=== PATIENT | male | born 1970 | race Caucasian/White ===

== ENCOUNTER 2017-04-17 14:42 | Emergency (ER) | payer OTHER ==
[2017-04-17 15:19] VITALS: BP 125/69
[2017-04-17] MEDS ORDERED: Ondansetron ODT TAB* 4 MG PO ONE (15:20)
[2017-04-17] MEDS ORDERED: Ibuprofen TAB* 600 MG PO ONE (16:00)
--- NOTE | 2017-04-17 16:24 | UC ---
Abdominal Pain Male HPI - HPI Summary HPI Summary: 46 y/o male presents ot the urgent care c/o diarrhea with abdominal cramping pain for the past 5 days. Pt reports he was in business trip in [facility] this past Tuesday. After he ate a hamburger, he had abdominal cramping pain all night and the Tue and he had multiple episodes of watery diarrhea. His appetite has decrease to the point he has not eaten anything for the past 2 days, only drinking Gatorade. When he returned on from his trip he had a fever of 100.5 which he took tylenol and it resolved. Since yesterday his bowel movements are soft. Today he has nausea, ROGERS and no appetite. Denies traveling outside the country, SOB, chest pain, vomiting, - History of Current Complaint Chief Complaint: UCRespiratory Stated Complaint: FLU LIKE SYMPTOMS,FEVER,DIARRHEA Time Seen by Provider: 04/17/17 15:33 Hx Obtained From: Patient Onset/Duration: Sudden Onset, Lasting Days, Still Present Severity Initially: Moderate Severity Currently: Mild Pain Intensity: 5 - headache Pain Scale Used: 0-10 Numeric Location: Epigastric - mild Radiates: No Character: Unable to describe Aggravating Factor(s):: Food Alleviating Factor(s): Rest Associated Signs And Symptoms: Positive: Fever, Nausea, Diarrhea. Negative: Back Pain, Blood in Stool, Urinary Symptoms, Decreased Appetite - Risk Factors Testicular Torsion: Negative Cardiac Risk Factors: Negative - Allergies/Home Medications Allergies/Adverse Reactions: Allergies Allergy/AdvReac Type Severity Reaction Status Date / Time No Known Allergies Allergy Verified 03/11/14 08:43 Home Medications: Home Medications Atorvastatin* [Lipitor*] 20 mg PO 1700 04/17/17 [History Confirmed 04/17/17] PMH/Surg Hx/FS Hx/Imm Hx Previously Healthy: Yes - Surgical History Surgical History: Yes Surgery Procedure, Year, and Place: Fracture repair on right leg and left arm - Family History Family History: Colon Cancer - Social History Alcohol Use: None Substance Use Type: None Smoking Status (MU): Never Smoked Tobacco - Immunization History Most Recent Influenza Vaccination: Review of Systems Constitutional: Fever Skin: Negative Eyes: Negative ENT: Negative Respiratory: Negative Cardiovascular: Negative Gastrointestinal: Abdominal Pain - mild epigastric pain, Diarrhea, Nausea Genitourinary: Negative Motor: Negative Neurovascular: Negative Musculoskeletal: Negative Neurological: Negative Psychological: Negative All Other Systems Reviewed And Are Negative: Yes Physical Exam Triage Information Reviewed: Yes Appearance: Well-Appearing, No Pain Distress, Well-Nourished, Thin Vital Signs: Initial Vital Signs Temp 99.2 F 04/17/17 15:16 Pulse 74 04/17/17 15:16 Resp 18 04/17/17 15:16 BP 125/69 04/17/17 15:16 Pulse Ox 99 04/17/17 15:16 Vital Signs Reviewed: Yes Eye Exam: Normal Eyes: Positive: Conjunctiva Clear - PERRLA, EOMI, Fundi grossly normal ENT Exam: Normal ENT: Positive: Normal ENT inspection, Hearing grossly normal, Pharynx normal, Pharyngeal erythema, TMs normal. Negative: Nasal congestion, Nasal drainage Dental Exam: Normal Neck exam: Normal Neck: Positive: Supple, Nontender, No Lymphadenopathy Respiratory Exam: Normal Respiratory: Positive: Chest non-tender, Lungs clear, Normal breath sounds Cardiovascular Exam: Normal Cardiovascular: Positive: RRR, No Murmur, Pulses Normal Abdominal Exam: Normal Abdomen Description: Positive: No Organomegaly - Mild epigastric tenderness on deep palpation., Soft. Negative: CVA Tenderness (R), CVA Tenderness (L), Splenomegaly Bowel Sounds: Positive: Present Musculoskeletal Exam: Normal Musculoskeletal: Positive: Strength Intact, ROM Intact, No Edema Neurological Exam: Normal Psychological Exam: Normal Skin Exam: Normal Abd Pain Male Course/Dx - Course Course Of Treatment: 46 y/o male presents ot the urgent care c/o diarrhea with abdominal cramping pain for the past 5 days. Diarrhea resolved yesterday. Today PT with nausea, ROGERS and decrease appetite. Hx obtained. PE abnormal findings: Mild epigastric tenderness on deep palpation. Pt given Zofran 4mg PO to alleviate symptoms of Nausea. Ibuprofen 600mg PO to alleviate ROGERS. Pt tpolerated well medications and fetl better. UA ordered, Result: negative. No signs of dehydration. Stool kit given to pt and advised to bring it back to sent to lab for culture and O&P. Pt advised if anything returns abnormal from lab he will get a call from us fot further treatment. Zofran Tabs and Omeprazole Rx to alleviate symptoms. Advised to continue with fluid intake and start soft meals. Pt understood and agreed. Left clinic ambulating. - Differential Dx/Clinical Impression Differential Diagnosis/HQI/PQRI: Appendicitis, Renal Colic, Urinary Tract Infection, Other - Gastroenteritis, travellers diarrhea. Provider Diagnoses: Diarrhea, Nausea, Headache. - Physician Notification/Consults Discussed Patient Care With: Concepcion Lomax - DR Lomax agreed with plan of care. Discharge - Discharge Plan Condition: Stable Disposition: HOME Prescriptions: Omeprazole CAP* [Prilosec CAP* 20 MG] 20 mg PO DAILY #15 cap. Ondansetron TAB* [Zofran 4 MG Tab*] 4 mg PO Q6H PRN #12 tab PRN Reason: Nausea Patient Education Materials: Acute Diarrhea (ED) Referrals: [facility] [Outside] - If Needed Additional Instructions: Please take medications as instructed to alleviate symptoms. Continue increasing fluid intake, start eating soft meals, take tylenol or Ibuprofen OTC to alleviate symptoms of headache. Stool will be set to lab, if any abnormal results, you will receive a call from us for further treatment. If you do not improve or if symptoms worsen after the course of antibiotics, you should either follow up with your PCP or return to the urgent care for further evaluation and treatment.
== END 2017-04-17 17:00 | disposition home or self-care (01) ==
LOC: UCEAST 14:42
DX: R19.7 Diarrhea, unspecified (principal); R11.0 Nausea; R51 Headache
CPT/HCPCS: 81003; 99212; A9270-GY; G0463

== ENCOUNTER 2017-10-07 18:02 | Observation (INO) | payer OTHER ==
--- NOTE | 2017-10-07 21:24 | RAD ---
Indication: Right leg pain. Duplex Doppler sonography of the deep venous system of the right lower extremity was performed. Bilaterally the common femoral veins appear patent and compressible. The right proximal femoral vein, proximal deep femoral vein and mid femoral vein are patent and compressible. The distal femoral vein, popliteal vein demonstrates echogenic material which is noncompressible. Posterior tibial veins and peroneal veins are also thrombosed. IMPRESSION: Deep venous thrombosis of the right distal femoral vein through the right calf veins.
[2017-10-07 21:36] LABS: Hematocrit 43 % (42-52); Hemoglobin 14.7 g/dl (14.0-18.0); Mean Corpuscular HGB Conc 34 g/dl (31-36); Mean Corpuscular Hemoglobin 30 pg (27-31); Mean Corpuscular Volume 89 fL (80-94); Mean Platelet Volume 8 um3 (7.4-10.4); Red Blood Count 4.86 10^6/ul (4.0-5.4); Red Cell Distribution Width 13 % (10.5-15); White Blood Count 7.3 10^3/ul (3.5-10.8)
[2017-10-07 21:50] LABS: Albumin 4.1 g/dL (3.2-5.2); BUN/Creatinine Ratio 14.9 (8-20); Calcium 9.5 mg/dL (8.6-10.3); EGFR African American 88.2 (>60); EGFR Non-African American 68.6 (>60); Potassium 4.1 mmol/L (3.5-5.0); Total Bilirubin 0.4 mg/dL (0.2-1.0); Total Protein 7.1 g/dL (6.4-8.9)
[2017-10-07] MEDS ORDERED: Enoxaparin(*) 100 MG/ML SYR SUBCUT ONE (21:51)
--- NOTE | 2017-10-07 22:05 | RAD ---
Indication: Dyspnea. 2 views of the chest including dual energy PA views demonstrate no mediastinal shift. Heart is of normal size and configuration. Lung baca and straight no pleural fluid, pneumonia or pneumothorax. IMPRESSION: No active cardiopulmonary disease is noted.
[2017-10-07] MEDS ORDERED: Iohexol 350* (CONTRAST) 500 ML MDV IV ONE (22:23)
[2017-10-07] MEDS ORDERED: Acetaminophen TAB* 325 MG PO PRN (23:38)
[2017-10-07] MEDS ORDERED: Ondansetron INJ* 2 MG/ML VIAL IV PRN (23:38)
[2017-10-07] MEDS ORDERED: oxyCODONE TAB* 5 MG TAB PO PRN (23:38)
[2017-10-07] MEDS ORDERED: traMADol TAB* 50 MG PO PRN (23:38)
[2017-10-07] MEDS ORDERED: CMCS: Melatonin (NF) 3 MG TAB PO PRN (23:38)
[2017-10-07] MEDS ORDERED: NS 0.9% 1000 ML* 1,000 ML IV SCH (23:45)
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
[2017-10-08] MEDS ORDERED: Omeprazole CAP* 20 MG PO SCH (06:00)
--- NOTE | 2017-10-08 08:14 | RAD ---
INDICATION: Swollen RIGHT lower leg with concern for DVT. Post fracture repair RIGHT leg and LEFT arm. Dyspnea. Assess for DVT. COMPARISON: October 07, 2017 chest radiograph. TECHNIQUE: Multidetector CT images were obtained from the lung apices to the upper abdomen with 78 mL Omnipaque 350 IV contrast. Pulmonary angiogram protocol. Multiplanar reformation including with maximum intensity projection. REPORT: Minimal dependent subsegmental atelectasis. Negative for pleural effusion or pneumothorax. Negative for thoracic lymphadenopathy. Upper normal heart size. Negative for pericardial effusion. Normal diameter thoracic aorta. Moderately severe burden of acute pulmonary emboli seen as proximal as the distal RIGHT main pulmonary artery and involving bilateral segmental and subsegmental pulmonary arteries. Images through the upper abdomen are unremarkable for a nonobstructing 0.8 cm stone at the upper pole of the LEFT kidney. Negative for fracture or suspicious osseous lesions. IMPRESSION: Moderately severe burden of acute pulmonary emboli seen as proximal as the distal RIGHT main pulmonary artery and involving bilateral segmental and subsegmental pulmonary arteries. Preliminary report provided at 2318 hours by [facility].
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
[2017-10-08] MEDS ORDERED: Rivaroxaban TAB(*) 15 MG PO ONE (15:02)
[2017-10-08 15:29] VITALS: BP 131/78
--- NOTE | 2017-10-09 02:16 | DS ---
CC: Dr. Rodriguez * DISCHARGE SUMMARY: DATE OF ADMISSION: 10/07/17 DATE OF DISCHARGE: 10/08/17 PRIMARY CARE PROVIDER: Dr. Rodriguez. PRINCIPAL DIAGNOSES: 1. Right lower extremity DVT. 2. [id number] pulmonary embolism involving both lungs. SECONDARY DIAGNOSES: 1. Gastroesophageal reflux disease. 2. Hyperlipidemia. DISCHARGE MEDICATIONS: 1. Lipitor 20 mg p.o. daily. 2. Zofran 4 mg p.o. q.6 hours p.r.n. nausea. 3. Prilosec 20 mg p.o. daily. 4. Xarelto 15 mg p.o. twice daily x21 days, then 20 mg p.o. daily. HOSPITAL COURSE: Mr. Villasenor is a 46-year-old male, who has a history of hyperlipidemia and GERD, who presents to the emergency room with complaints of right lower extremity swelling. The patient noted that his right lower extremity began to swell for approximately a week. The patient had pain in his lower extremities starting beginning of this week. He ultimately presented to the emergency room for evaluation as his prompted him to as she previously had a DVT and felt that this was potentially what was going on. The patient had no complaints of chest pain. The patient underwent venous Doppler in the emergency room, which revealed a deep venous thrombosis of the right distal femoral vein through the right calf veins. The patient was given Lovenox in the emergency room. The patient was admitted to the telemetry floor. He did undergo CTA of the chest, which revealed a moderately severe burden of acute pulmonary emboli seen as proximal as the distal right main pulmonary artery and involving bilateral segmental and subsegmental pulmonary arteries. The patient was monitored on telemetry overnight. No significant telemetry issues arose. He has remained hemodynamically stable with blood pressures in the 110s to 130s range. There was one blood pressure listed as 96/58; however, I suspect this is not accurate. The patient's heart rate has been stable in the 60s and 70s. The patient denies any chest pain. He denies any shortness of breath. He has no pain on deep inspiration. At this point, I have recommended that the patient get a transthoracic echocardiogram to evaluate for right heart strain; however, as it is not going to foreign exchange services manager moving forward, the decision was made to discharge the patient home to follow up with his primary care provider and have the echocardiogram performed as an outpatient. After discussion on anticoagulation options including Coumadin, Xarelto and Eliquis, the patient has opted for Xarelto. He was started on this on the day of discharge. The patient understands that he is to take 15 mg of Xarelto twice daily for 21 days followed by 20 mg daily ongoing. The patient did have a hypercoagulable workup sent in the emergency room. This was done as the patient reported a history of DVT/PE in both his mother and his sister. The patient has been instructed to return to the emergency room if he begins coughing up any blood, having a sudden onset of chest pain, shortness of breath , syncope or any other concerning symptoms. FOLLOWUP CONCERNS: The patient is being discharged home today 10/08/17. ACTIVITY LEVEL: As tolerated. DIET: Regular. CONDITION ON DISCHARGE: Stable. TIME SPENT: Thirty-five minutes was spent discharging this patient. [id number]/CPS #: [id number] MTDD
[2017-10-10 12:10] LABS: Free Protein S Antigen 124 % (65 - 160)
[2017-10-10 13:40] LABS: Protein C Activity 120 % (70 - 150)
[2017-10-10 16:35] LABS: Phospholipid Ab IgG < 9.4 GPL; Phospholipid Ab IgM, S 21.6 MPL
== END 2017-10-08 16:00 | disposition home or self-care (01) ==
LOC: ED 18:02 → MEDTELE 23:35
PROVIDERS: ADMIT Hospitalist; ATTEND Hospitalist
DX: I26.99 Other pulmonary embolism without acute cor pulmonale (principal); I82.411 Acute embolism and thrombosis of right femoral vein; K21.9 Gastro-esophageal reflux disease without esophagitis; E78.5 Hyperlipidemia, unspecified; Z79.899 Other long term (current) drug therapy; R06.02 Shortness of breath
CPT/HCPCS: 36415; 71020; 71275; 80053; 81240; 81241; 81291; 85025; 85302; 85303; 85306; 85307; 85379; 85598; 86147; 93005; 96360; 96361; 96372; 99284; G0378; J1650; Q9967

== ENCOUNTER 2017-10-09 17:37 | Observation (INO) | payer OTHER ==
[2017-10-09 18:14] LABS: Hematocrit 44 % (42-52); Hemoglobin 15.3 g/dl (14.0-18.0); Mean Corpuscular HGB Conc 35 g/dl (31-36); Mean Corpuscular Hemoglobin 31 pg (27-31); Mean Corpuscular Volume 88 fL (80-94); Mean Platelet Volume 7 um3 (7.4-10.4); Red Blood Count 4.96 10^6/ul (4.0-5.4); Red Cell Distribution Width 13 % (10.5-15); White Blood Count 6.4 10^3/ul (3.5-10.8)
[2017-10-09 18:29] LABS: Albumin 4.3 g/dL (3.2-5.2); BUN/Creatinine Ratio 13.2 (8-20); Calcium 9.9 mg/dL (8.6-10.3); EGFR African American 88.2 (>60); EGFR Non-African American 68.6 (>60); Globulin 3.1 g/dL (2-4); Potassium 3.6 mmol/L (3.5-5.0); Total Bilirubin 0.4 mg/dL (0.2-1.0); Total Protein 7.4 g/dL (6.4-8.9)
[2017-10-09] MEDS ORDERED: CMCS: Melatonin (NF) 3 MG TAB PO PRN (21:28)
[2017-10-09] MEDS ORDERED: Acetaminophen TAB* 325 MG PO PRN (21:28)
[2017-10-09] MEDS ORDERED: NS 0.9% 1000 ML* 1,000 ML IV SCH (21:30)
[2017-10-09] MEDS ORDERED: Aspirin Low Dose CHEW TAB* 81 MG PO ONE (21:54)
[2017-10-09] MEDS ORDERED: traMADol TAB* 50 MG PO PRN (21:54)
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
[2017-10-09] MEDS: Rivaroxaban TAB(*) 15 MG PO SCH (23:44)
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
[2017-10-10 07:52] VITALS: BP 121/74
[2017-10-10] MEDS: Rivaroxaban TAB(*) 15 MG PO SCH (08:21)
[2017-10-10] MEDS ORDERED: Docusate CAP* 100 MG PO SCH (09:00)
--- NOTE | 2017-10-10 09:49 | DCNOTE ---
Subjective Date of Service: 10/10/17 Interval History: No more chest pain. Occ mid-back pain, not at present. No cough, SOB. Objective Active Medications: Acetaminophen (Tylenol Tab*) 650 mg PO Q6H PRN PRN Reason: FEVER/PAIN Docusate Sodium (Colace Cap*) 200 mg PO BID [facility] Last Admin: 10/10/17 08:26 Dose: Not Given Sodium Chloride (Ns 0.9% 1000 Ml*) 1,000 mls @ 50 mls/hr IV PER RATE [facility] Last Admin: 10/09/17 23:49 Dose: 50 mls/hr Melatonin (Melatonin (Nf)) 3 mg PO BEDTIME PRN; Protocol PRN Reason: Sleep Rivaroxaban (Xarelto(*)) 15 mg PO BID [facility] Last Admin: 10/10/17 08:21 Dose: 15 mg Tramadol HCl (Ultram*) 50 mg PO Q6H PRN PRN Reason: PAIN Vital Signs - 8 hr 10/10/17 10/10/17 03:15 07:38 Temperature 98.0 F 97.6 F Pulse Rate 62 58 Respiratory 16 16 Rate Blood Pressure 116/61 121/74 (mmHg) O2 Sat by Pulse 97 95 Oximetry Oxygen Devices in Use Now: None Appearance: Alert, sitting up in bed. In good spirits. Looks comfortable. Eyes: No Scleral Icterus Neck: NL Appearance and Movements; NL JVP, No Thyroid Enlargement, Masses Respiratory: Symmetrical Chest Expansion and Respiratory Effort, Clear to Auscultation, Clear to Percussion Cardiovascular: NL Sounds; No Murmurs; No JVD, RRR, No Edema, - - R calf larger than L Extremities: No Edema, No Clubbing, Cyanosis, - Skin: No Rash or Ulcers, No Nodules or Sclerosis, - Neurological: Alert and Oriented x 3, NL Sensation Result Diagrams: 10/09/17 17:57 10/09/17 17:57 Additional Lab and Data: Lab Results 10/09/17 10/09/17 10/09/17 Range/Units 17:57 17:57 17:57 WBC 6.4 (3.5-10.8) 10^3/ul RBC 4.96 (4.0-5.4) 10^6/ul Hgb 15.3 (14.0-18.0) g/dl Hct 44 (42-52) % MCV 88 (80-94) fL MCH 31 (27-31) pg MCHC 35 (31-36) g/dl RDW 13 (10.5-15) % Plt Count 227 (150-450) 10^3/ul MPV 7 L (7.4-10.4) um3 Neut % (Auto) 60.9 (38-83) % Lymph % (Auto) 26.6 (25-47) % [place] % (Auto) 8.5 (1-9) % Eos % (Auto) 3.2 (0-6) % Baso % (Auto) 0.8 (0-2) % Absolute Neuts (auto) 3.9 (1.5-7.7) 10^3/ul Absolute Lymphs (auto) 1.7 (1.0-4.8) 10^3/ul Absolute Monos (auto) 0.5 (0-0.8) 10^3/ul Absolute Eos (auto) 0.2 (0-0.6) 10^3/ul Absolute Basos (auto) 0 (0-0.2) 10^3/ul Absolute Nucleated RBC 0.01 10^3/ul Nucleated RBC % 0.2 Sodium 137 (133-145) mmol/L Potassium 3.6 (3.5-5.0) mmol/L Chloride 102 (101-111) mmol/L Carbon Dioxide 29 (22-32) mmol/L Anion Gap 6 (2-11) mmol/L BUN 15 (6-24) mg/dL Creatinine 1.14 (0.67-1.17) mg/dL Est GFR ( Amer) 88.2 (>60) Est GFR (Non-Af Amer) 68.6 (>60) BUN/Creatinine Ratio 13.2 (8-20) Glucose 143 H (70-100) mg/dL Lactic Acid 1.1 (0.5-2.0) mmol/L Calcium 9.9 (8.6-10.3) mg/dL Total Bilirubin 0.40 (0.2-1.0) mg/dL AST 17 (13-39) U/L ALT 25 (7-52) U/L Alkaline Phosphatase 75 (34-104) U/L Troponin I 0.00 (<0.04) ng/mL Total Protein 7.4 (6.4-8.9) g/dL Albumin 4.3 (3.2-5.2) g/dL Globulin 3.1 (2-4) g/dL Albumin/Globulin Ratio 1.4 (1-3) 10/09/17 Range/Units 20:51 WBC (3.5-10.8) 10^3/ul RBC (4.0-5.4) 10^6/ul Hgb (14.0-18.0) g/dl Hct (42-52) % MCV (80-94) fL MCH (27-31) pg MCHC (31-36) g/dl RDW (10.5-15) % Plt Count (150-450) 10^3/ul MPV (7.4-10.4) um3 Neut % (Auto) (38-83) % Lymph % (Auto) (25-47) % [place] % (Auto) (1-9) % Eos % (Auto) (0-6) % Baso % (Auto) (0-2) % Absolute Neuts (auto) (1.5-7.7) 10^3/ul Absolute Lymphs (auto) (1.0-4.8) 10^3/ul Absolute Monos (auto) (0-0.8) 10^3/ul Absolute Eos (auto) (0-0.6) 10^3/ul Absolute Basos (auto) (0-0.2) 10^3/ul Absolute Nucleated RBC 10^3/ul Nucleated RBC % Sodium (133-145) mmol/L Potassium (3.5-5.0) mmol/L Chloride (101-111) mmol/L Carbon Dioxide (22-32) mmol/L Anion Gap (2-11) mmol/L BUN (6-24) mg/dL Creatinine (0.67-1.17) mg/dL Est GFR ( Amer) (>60) Est GFR (Non-Af Amer) (>60) BUN/Creatinine Ratio (8-20) Glucose (70-100) mg/dL Lactic Acid (0.5-2.0) mmol/L Calcium (8.6-10.3) mg/dL Total Bilirubin (0.2-1.0) mg/dL AST (13-39) U/L ALT (7-52) U/L Alkaline Phosphatase (34-104) U/L Troponin I 0.00 (<0.04) ng/mL Total Protein (6.4-8.9) g/dL Albumin (3.2-5.2) g/dL Globulin (2-4) g/dL Albumin/Globulin Ratio (1-3) Assess/Plan/Problems-Billing Assessment: - Patient Problems (1) Pulmonary embolism Current Visit: No Status: Acute Code(s): I26.99 - OTHER PULMONARY EMBOLISM WITHOUT ACUTE COR PULMONALE SNOMED Code(s): 13044992 Comment: Chest pain likely related to PE and/or cough. No change in tx indicated. Pt advised his exercise tolerance could be permanently affected by the PE. He was playing hockey until very recently. (2) DVT (deep venous thrombosis) Current Visit: No Status: Acute Code(s): I82.409 - ACUTE EMBOLISM AND THOMBOS UNSP DEEP VN UNSP LOWER EXTREMITY SNOMED Code(s): 733064072 Comment: Pt advised there may be some permament tendency for swelling R leg due to DVT. Status and Disposition: Discharge now. Fup Dr. Rodriguez.
--- NOTE | 2017-10-10 10:53 | DS ---
CC: Dr. Rodriguez DATE OF ADMISSION: 10/09/2017. DATE OF DISCHARGE: 10/10/2017. HISTORY: This 46-year-old man presented to the emergency room because of chest pain. He had been home about 24 hours or less after recently being diagnosed with pulmonary embolus DVT. He had a CT scan on 10/07/2017 as well as a Doppler study. He had been placed on Rivaroxaban which he took as prescribed. There was no history of trauma. He did have a little bit of cough. Details of the history are in the admission note. The pain and cough fairly resolved while he was here. His mentioned that he occasionally had some back pain, but his was not present at the time of discharge either. The patient's O2 saturation was 96 percent on room air which was measured by me on the day of discharge. He was quite comfortable, not tachypneic. Lung exam was normal. My clinical impression is that the chest pain may be related to his cough and/ or some residual effect from his pulmonary embolism, but no change in therapy would be indicated. I note he had four troponins, all of which were normal. Echocardiogram was done and normal LVEF, normal RV systolic function, mild to mod RV and RA dilatation. FINAL DIAGNOSES: 1. Pulmonary embolism and DVT. 2. Chest pain, resolved. 3. Intermittent back pain. DISCHARGE MEDICATIONS: 1. Acetaminophen 650 mg every 6 hours prn. 2. Rivaroxaban 15 mg b.i.d. [id number]/[facility] #: [id number] MTDD
--- NOTE | 2017-10-10 11:56 | ECHO ---
Patient: LEILA HORVATH [facility] Rec#: [id number] : 1970 Date: 10/10/2017 Age: 46y Height: 180.34 cm / 71.0 in Weight: 91.63 kg / 202.0 lbs Sex: M BSA: 2.12 Room#: 4 Admit Date#: 10/10/2017 Type: Inpatient Referring: Narendra Gonsalez MD Reading: Gary Major MD [employer]working [employer] Sander: Cherelle Price,JOCELYNCS,RDMS CC: Donta Rodriguez MD Transthoracic Echocardiogram Indication: CP BP: 116/61 HR: 69 Rhythm: NSR Findings History: DVT/PE, HLD Technical Comments: The study quality is good. Left Ventricle: The left ventricular chamber size is normal. Mild concentric left ventricular hypertrophy is observed. Global left ventricular wall motion and contractility are within normal limits. There is normal left ventricular systolic function. The estimated ejection fraction is 55-60%. There is no consistent Doppler evidence of clinically significant diastolic dysfunction. Left Atrium: The left atrium is mildly dilated. Right Ventricle: The right ventricle wall thickness is mildly increased. The right ventricle is mild to moderately dilated. The right ventricular global systolic function is normal. Right Atrium: The right atrium is mild to moderately dilated. Aortic Valve: The aortic valve is trileaflet. Systolic excursion of the aortic valve is normal. There is a trace of aortic regurgitation. There is no evidence of aortic stenosis. Mitral Valve: The mitral valve leaflets appear normal. There is a trace of mitral regurgitation. There is no evidence of mitral stenosis. Tricuspid Valve: The tricuspid valve leaflets are normal. There is trace tricuspid regurgitation. Pulmonic Valve: The pulmonic valve appears normal. There is a trace pulmonic regurgitation. Pericardium: There is no significant pericardial effusion. Aorta: The aortic root appears normal. There is no dilatation of the aortic arch. Pulmonary Artery: The main pulmonary artery appears normal. Venous: The inferior vena cava appears normal in size. There is a greater than 50% respiratory change in the inferior vena cava dimension. Conclusions Global left ventricular wall motion and contractility are within normal limits. There is normal left ventricular systolic function. The estimated ejection fraction is 55-60%. The right ventricle is mild to moderately dilated. The right ventricular global systolic function is normal. There is a trace of aortic regurgitation. There is no evidence of aortic stenosis. There is a trace of mitral regurgitation. There is trace tricuspid regurgitation. There is no significant pericardial effusion. Measurements Name Value Normal Range RVIDd (AP) 2D 4 cm (0.9 - 2.6) RVDdMajor (2D) 3.9 cm (2.2 - 4.4) RAd ISD 4CH 5.3 cm (3.4 - 4.9) RA (A4C)W 4.9 cm (2.9 - 4.6) IVSd (2D) 1.2 cm (0.6 - 1) LVPWd (2D) 1.2 cm (0.6 - 1) LVIDd (2D) 4.8 cm (3.6 - 5.4) LVIDs (2D) 3.1 cm - LV FS (2D) 35 % (25 - 45) Aortic Annulus 2.6 cm (1.4 - 2.6) Ao root diameter (2D) 3.5 cm (2.1 - 3.5) Ascending Ao 3.1 cm (2.1 - 3.4) Aortic arch 3.1 cm (1.8 - 3.4) LA dimension (AP) 2D 4.1 cm (2.3 - 3.8) LAd ISD 4CH 5.4 cm (2.9 - 5.3) LA ISD 4CH W 4.6 cm (2.5 - 4.5) Name Value Normal Range LA ESV SP 4CH (A/L) 61.44 ml - LA ESV SP 2CH (A/L) 79.04 ml - LA ESV BP (A/L) 72.4 ml - LA ESV BP (A/L) index 34 ml/m2 - LA ESV SP 4CH (MOD) 58.46 ml - LA ESV SP 2CH (MOD) 75.37 ml - Name Value Normal Range MV E-wave Vmax 0.6 m/sec - MV deceleration time 183 msec - MV A-wave Vmax 0.4 m/sec - MV E:A ratio 1.5 ratio - P. vein S-wave Vmax 0.4 m/sec - P. vein D-wave Vmax 0.5 m/sec - P. vein S:D Vmax ratio 0.9 ratio - P. vein A-wave duration 111 msec - LV septal e' Vmax 0.06 m/sec - LV lateral e' Vmax 0.08 m/sec - LV E:e' septal ratio 10 ratio - LV E:e' lateral ratio 7.5 ratio - Name Value Normal Range AV Vmax 1.1 m/sec - AV VTI 23 cm - AV peak gradient 5 mmHg - AV mean gradient 2.4 mmHg - LVOT Vmax 0.9 m/sec - LVOT VTI 20.3 cm - LVOT peak gradient 3.2 mmHg - LVOT mean gradient 1.6 mmHg - JOHNNIE Vmax 0.9 m/sec - Name Value Normal Range TR Vmax 2.1 m/sec - TR peak gradient 18 mmHg - RAP 3 mmHg - RVSP 21 mmHg - IVC diameter 2 cm - Name Value Normal Range PV Vmax 0.6 m/sec - PV peak gradient 1.4 mmHg -
== END 2017-10-10 10:30 | disposition home or self-care (01) ==
LOC: ED 17:37 → MEDTELE 21:03
PROVIDERS: ADMIT Hospitalist; ATTEND Internal Medicine
DX: I26.99 Other pulmonary embolism without acute cor pulmonale (principal); I82.401 Acute embolism and thrombosis of unspecified deep veins of right lower extremity; E78.5 Hyperlipidemia, unspecified; R07.9 Chest pain, unspecified; R06.00 Dyspnea, unspecified
CPT/HCPCS: 36415; 80053; 83605; 84484; 85025; 93005; 93306; 99283; A9270-GY; G0378

== ENCOUNTER → 2019-05-21 06:47 | Day surgery (SDC) | payer OTHER ==
--- NOTE | 2019-05-09 22:55 | HP ---
CC: Dr. Germán Frias * HISTORY AND PHYSICAL: DATE OF PLANNED ADMISSION AND SURGERY: 05/21/19 HISTORY OF PRESENT ILLNESS: Mr. Villasenor is a 48-year-old white male who is admitted with a left renal calculus for cystoscopy, insertion left ureteral stent and shockwave lithotripsy of left renal calculus. Mr. Villasenor's history started about 3 weeks ago when he started having recurrent episodes of gross painless hematuria. He had been maintained on Xarelto because of history of pulmonary embolism and DVT. The hematuria would stop when the Xarelto is discontinued and would recur after he restarts it. The patient had no associated flank pain or voiding symptoms. No previous history of gross hematuria. The patient had a CT urogram, which showed a nonobstructing 7 mm calculus at the left ureteropelvic junction. No other abnormalities were noted. Because of that finding, the patient was referred to our office by Dr. Frias's office for further management. Past history is otherwise negative. No past history of any renal diseases or calculi. No history of gross hematuria, voiding symptoms or symptoms of urinary tract infections or prostatitis. 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 He was found to have a clot in his right femoral vein. It was managed with anticoagulation in the form of Xarelto. He has been maintained on the anticoagulation since that time. The workup showed him to have factor V Leiden. He has a strong family history of the similar condition. The patient is otherwise in excellent health. His only other medication is Lipitor for hyperlipidemia. He denies any cardiac disease. He is a nonsmoker. He drinks about 1 to 2 drinks per day. He denies any allergies to Medications. Family History positive for Factor V Leiden, and embolic phenomena. PHYSICAL EXAMINATION GENERAL: Pleasant and healthy looking white male who looks his age. VITAL SIGNS: Blood pressure 140/80, pulse of 50. LUNGS: Clear. HEART: Regular and rhythmic, no murmurs. ABDOMEN: Soft. No masses, no tenderness and no CVA tenderness. GENITOURINARY: External genitalia are normal. RECTAL: Shows a slightly enlarged, but nonsuspicious prostate. DIAGNOSTIC STUDIES/LAB DATA: The patient had a KUB at his original visit to my office. This study showed a 7 to 8 mm radiopaque calculus at the level of the left ureteropelvic junction. IMPRESSION: Recurrent episodes of gross painless hematuria secondary to a 7 mm nonobstructing and asymptomatic calculus at the left ureteropelvic junction in a patient on anticoagulation with Xarelto because of history of embolic phenomenon and pulmonary embolism secondary to factor V Leiden. PLAN: Plan is for cystoscopy to rule out any bladder lesions, insertion of left ureteral stent followed by shockwave lithotripsy of the left renal calculus. I discussed the above plans with Dr. Frias, his cigarette package examiner. He feels that it should be safe to discontinue the Xarelto about 4 days preoperatively. He does not need to be bridged with Lovenox during this time. The plan will be to restart the anticoagulation a few days after the shockwave lithotripsy after obtaining renal ultrasound and demonstrating no perinephric hematoma. I discussed the above plans again with the patient. Some of the potential complications including hematuria, failure to break this calculus, postoperative renal colic. All his questions were answered. [id number]/[facility] #: [id number]
[~2019-05-21 06:47] MED LIST: Buffered Lidocaine 1% SYRIN* 1 ML/SYRINGE INTRADERM ONE; Furosemide IV* 10 MG/ML 2 ML VIAL (20 MG) ONE; Iohexol 180 (CONTRAST) 10 ML SDV IV ONE; Lactated Ringers 1000 ML Bag* 1,000 ML IV SCH; Midazolam* 1 MG/ML 5 ML VIAL (5 MG) ONE; Naloxone* 0.4 MG/ML 1 ML VIAL IV PRN; Ondansetron INJ* 2 MG/ML VIAL IV PRN; Propofol* 10 MG/ML 20 ML BTL ONE; Tamsulosin CAP* 0.4 MG ONE; cefTRIAXone(*) 2 GM ADDV.VIAL IVPB ONE; fentaNYL* 50 MCG/ML 2 ML VIAL (100 MCG VIAL) ONE; oxyCODONE/Acetamin 5/325 MG* TAB ONE
[2019-05-21] MEDS: oxyCODONE/Acetamin 5/325 MG* TAB PO PRN ×2 (11:18→11:32)
[2019-05-21] MEDS: fentaNYL* 50 MCG/ML 2 ML VIAL (100 MCG VIAL) IV PRN ×4 (11:20→13:10)
--- NOTE | 2019-05-21 13:18 | OP ---
CC: Dr. Frias; Dr. Donta Rodriguez * DATE OF OPERATION: - SDS DATE OF : [birth year] SURGEON: Cristian Gonzalez MD. ANESTHESIOLOGIST: Dr. Grier. ANESTHESIA: General. PRE-OP DIAGNOSES: 1. Left renal calculus. 2. Gross hematuria due to above. POST-OP DIAGNOSES: 1. Left renal calculus. 2. Gross hematuria due to above. OPERATIVE PROCEDURES: 1. Cystoscopy. 2. Left retrograde pyelography and insertion of left ureteral stent. 3. Shockwave lithotripsy of left renal calculus (1 cm). INDICATIONS: Mr. Villasenor is a 48-year-old white male who has history of factor V Leiden with history of deep vein thrombosis and pulmonary embolism, who has been maintained on Xarelto. He noted recurrent episodes of gross painless hematuria and CT showed a 1 cm calculus at the left ureteropelvic junction causing minimal degree of obstruction. KUB confirmed the presence of radiopaque stone at that level. With that history, the patient was admitted for the above procedure. After consultation with Dr. Frias, the Xarelto was discontinued 5 days prior to this admission. PATHOLOGY: Preoperative KUB again showed a 1 cm radiopaque calculus at the level of the left ureteropelvic junction. No other abnormal calcifications were noted. At cystoscopy, the penile and bulbar urethrae looked normal. The prostatic urethra measured about 2.5 cm in length and there was early prostate enlargement. The prostatic urethra was vascular and there was some oozing of blood with the instrumentation. Examination of the bladder showed normal bladder mucosa. There were suspicious bladder lesions seen. No calculi or diverticula were noted. He had orthotopic orifice on each side. Fluoroscopy again confirmed the presence of a radiopaque calculus at the left ureteropelvic junction. Upon left retrograde pyelography, there was no significant hydronephrosis noted. DESCRIPTION OF PROCEDURE: After successful general anesthesia, the patient was placed in the dorsal lithotomy position and was prepped and draped for cystoscopy. Cystoscopy was performed. The bladder was carefully inspected and the above findings were noted. A flexible tip guidewire was introduced into the left orifice. Retrograde pyelography was performed. A size 6-Hungarian stent was then placed with the proximal end coiling in the renal pelvis and the distal end coiling inside the bladder. A 16-Hungarian Echavarria catheter was then placed in the bladder. The patient was then placed in the supine position. Fluoroscopy after clearing the contrast from the left kidney showed that the calculus had migrated into the renal pelvis. The calculus was then visualized in both PA and the oblique x -ray views and the position of the generator was adjusted to have the stone in focus of the shockwaves. A total of 2400 shocks were then delivered at a rate of 60 shocks per minute. A 3- minute break was taken after the initial 300 shocks to decrease the risk of renal injury. The proper positioning and fragmentation of the stone were monitored periodically. At the completion of the treatment, the stone seems to have fragmented adequately, with the larger fragment measuring about 5 mm. The urine in the Echavarria catheter was light rivera that was noted even before the shockwave lithotripsy was initiated, indicating that at least a part of the hematuria is originating from the prostatic urethra. The patient tolerated the procedure well and left the operating room in good condition. The plan is to see the patient in the office in about 2 to 3 days for a renal ultrasound. We will decide at what point we need to restart the Xarelto. [id number]/[facility] #: [id number]
[2019-05-21 14:35] VITALS: BP 155/84
== END | disposition home or self-care (01) ==
LOC: OR 06:47
PROVIDERS: ATTEND Urology
DX: N20.0 Calculus of kidney (principal); R31.0 Gross hematuria; D68.51 Activated protein C resistance; Z86.718 Personal history of other venous thrombosis and embolism; Z79.01 Long term (current) use of anticoagulants; Z86.711 Personal history of pulmonary embolism; E78.00 Pure hypercholesterolemia, unspecified
CPT/HCPCS: 74018; A9270-GY; C1876; J0696; J1940; J2250; J2704; J3010